=== PATIENT | male | born 1975 | race Caucasian/White ===

== ENCOUNTER → 2023-08-25 | Emergency (ER) | payer OTHER ==
[~2023-08-25] MED LIST: ONDANSETRON 4 MG/2 ML VIAL ONE
[2023-08-25 12:46] LABS: Absolute Lymphocytes (CBC) 2.4 K/uL (0.7-4.9); Hematocrit 46.3 % (39.6-49.0); Lymphocytes % 25.9 % (15.3-44.8); MCV 88.4 fL (80-100); Platelets 268 thou/uL (152-406); RBC Red Blood Cell Count 5.24 M/uL (4.33-5.43)
[2023-08-25 13:03] LABS: Albumin 3.6 g/dL (3.4-5.0); Bilirubin Total 0.3 mg/dL (0.2-1.0); Potassium 4.3 mEq/L (3.5-5.1); Protein, Total 7.3 g/dL (6.4-8.2)
[2023-08-25 13:16] LABS: Specific Gravity 1.024 (1.005-1.030); Urine Bacteria None Seen /HPF (<20); Urine Bilirubin NEGATIVE (Negative); Urine Blood 2+ (Negative); Urine Clarity Turbid (Clear); Urine Color Yellow (Yellow); Urine Glucose NEGATIVE (Negative); Urine Mucus Slight /HPF (None Seen); Urine Protein TRACE (Negative); Urine RBC >50 /HPF (None Seen); Urine Urobilinogen Normal (Normal)
--- NOTE | 2023-08-25 13:57 | RAD REPORT ---
EXAM DESCRIPTION: CT - Abdomen Pelvis W Contrast - 08/25/2023 1:48 pm CLINICAL HISTORY: Abdominal pain COMPARISON: none. TECHNIQUE: Computed axial tomography of the abdomen pelvis was obtained. 100 cc Isovue-300 was admin istered intravenously. Oral contrast was not requested which limits evaluation of bowel and appendix All CT scans are performed using dose optimization technique as appropriate and may include automated exposure control or mA/KV adjustment according to patient size. FINDINGS: Fatty liver. Cholelithiasis. Gallbladder wall is not thickened. Spleen, pancreas, adrenals and right kidney are unremarkable 16 millimeter calculus left renal pelvis with mild left hydronephrosis. Normal appendix. No evidence of diverticulitis Small umbilical hernia IMPRESSION: 16 millimeter calculus left renal pelvis with mild left hydronephrosis. Cholelithiasis without evidence of cholecystitis
--- NOTE | 2023-08-25 14:16 | ER ---
Nurse's Notes [facility] Name: Audelia Olivier Age: 48 yrs Sex: Male : 1975 Arrival Date: 08/25/2023 Time: 11:52 Bed 19 Private MD: Diagnosis: Kidney stone, flank pain Presentation: 08/25 12:13 Chief complaint: Intermittent left sided abdominal pain x 2-3 months. Denies hb N/V/D/urinary symptoms. Coronavirus screen: At this time, the client does not indicate any symptoms associated with coronavirus-19. Ebola Screen: No symptoms or risks identified at this time. Initial Sepsis Screen: Does the patient meet any 2 criteria? No. Patient's initial sepsis screen is negative. Does the patient have a suspected source of infection? No. Patient's initial sepsis screen is negative. Risk Assessment: Do you want to hurt yourself or someone else? Patient reports no desire to harm self or others. Onset of symptoms was May 2023. 12:13 Method Of Arrival: Ambulatory hb 12:13 Acuity: KYLE 3 hb Historical: - Allergies: 12:15 No Known Allergies; hb - Home Meds: 12:15 None [Active]; hb - PMHx: 12:15 None; hb - PSHx: 12:15 None; hb - Immunization history:: Adult Immunizations up to date. - Social history:: Smoking status: Patient reports the use of cigarette tobacco products. Screenin:55 [facility] ED Fall Risk Assessment (Adult) History of falling in the last 3 months, db including since admission No falls in past 3 months (0 pts) Confusion or Disorientation No (0 pts) Intoxicated or Sedated No (0 pts) Impaired Gait No (0 pts) Mobility Assist Device Used No (0 pt) Altered Elimination No (0 pt) Score/Fall Risk Level 0 - 2 = Low Risk Oriented to surroundings, Maintained a safe environment. Abuse screen: Denies threats or abuse. Denies injuries from another. Nutritional screening: No deficits noted. Tuberculosis screening: No symptoms or risk factors identified. Assessment: 13:55 Reassessment: Patient appears in no apparent distress at this time. Patient and/or db family updated on plan of care and expected duration. Pain level reassessed. Patient is alert, oriented x 3, equal unlabored respirations, skin warm/dry/pink. General: Appears in no apparent distress. comfortable, Behavior is calm, cooperative. Pain: Complains of pain in back. Neuro: Level of Consciousness is awake, alert, obeys commands, Oriented to person, place, time, situation. Respiratory: Airway is patent Respiratory effort is even, unlabored, Respiratory pattern is regular, symmetrical. Vital Signs: 12:13 BP 146 / 103; Pulse 69; Resp 16; Temp 98.4(O); Pulse Ox 100% on R/A; Weight 84.37 kg; hb Height 5 ft. 6 in. ; Pain 6/10; 14:18 BP 153 / 99 LA; Pulse 68; Resp 12 S; Temp 98(O); Pulse Ox 100% on R/A; jg11 12:13 Body Mass Index 30.02 (84.37 kg, 167.64 cm) hb 12:13 Pain Scale: Adult hb ED Course: 12:00 Patient arrived in ED. mg5 12:09 Ashlie Bills MD is Attending Physician. sp3 12:15 Triage completed. hb 12:15 Arm band placed on. hb 12:42 Initial lab(s) drawn, by me, sent to lab. Inserted saline lock: 22 gauge in right jg11 antecubital area, using aseptic technique. Blood collected. 12:57 Carmen Dias, RN is Primary Nurse. db 13:50 CT Abd/Pelvis - IV Contrast Only In Process Unspecified. EDMS 13:55 Patient has correct armband on for positive identification. Bed in low position. Call db light in reach. Side rails up X 1. Provided Education on: DISCHARGE. Pulse ox on. NIBP on. Warm blanket given. 13:55 No provider procedures requiring assistance completed. db 14:15 Tom Lee MD is Referral Physician. sp3 14:32 IV discontinued, intact, bleeding controlled, No redness/swelling at site. Pressure db dressing applied. Administered Medications: No medications were administered Medication: 13:55 VIS not applicable for this client. db Outcome: 14:15 Discharge ordered by . sp3 14:32 Discharged to home ambulatory, with family, db 14:32 Condition: stable 14:32 Discharge instructions given to patient, family, Instructed on discharge instructions, follow up and referral plans. Prescriptions given X 1, 14:32 Patient left the ED. db Signatures: Dispatcher [employer] Tayla Connell RN RN Ashlie Reyez MD MD sp3 Carmen Dias RN RN db Dorene Alcantara mg5 Luis Ernst jg11
--- NOTE | 2023-08-25 14:16 | EDPHYS ---
Physician Documentation [facility] Name: Audelia Olivier Age: 48 yrs Sex: Male : 1975 Arrival Date: 08/25/2023 Time: 11:52 Bed 19 Private MD: ED Physician Ashlie Bills HPI: 08/25 12:53 This 48 yrs old Male presents to ER via Ambulatory with complaints of Abdominal Pain. sp3 12:55 48-year-old male with no past medical history presents with left lower quadrant sp3 abdominal pain off and on for 1 month. Occasional diarrhea reported. He denies any vomiting, chest pain, shortness of breath, fever, melena, rash, other bleeding, or any other signs or symptoms on ROS at this time. Pain is reported as cramping in nature with a maximum of 6 out of 10.. Historical: - Allergies: 12:15 No Known Allergies; hb - Home Meds: 12:15 None [Active]; hb - PMHx: 12:15 None; hb - PSHx: 12:15 None; hb - Immunization history:: Adult Immunizations up to date. - Social history:: Smoking status: Patient reports the use of cigarette tobacco products. ROS: 12:56 Constitutional: Negative for fever, chills, and weight loss, Eyes: Negative for injury, sp3 pain, redness, and discharge, ENT: Negative for injury, pain, and discharge, Neck: Negative for injury, pain, and swelling, Cardiovascular: Negative for chest pain, palpitations, and edema, Respiratory: Negative for shortness of breath, cough, wheezing, and pleuritic chest pain, Back: Negative for injury and pain, MS/Extremity: Negative for injury and deformity, Skin: Negative for injury, rash, and discoloration, Neuro: Negative for headache, weakness, numbness, tingling, and seizure, Psych: Negative for depression, anxiety, suicide ideation, homicidal ideation, and hallucinations, Allergy/Immunology: Negative for hives, rash, and allergies, Endocrine: Negative for neck swelling, polydipsia, polyuria, polyphagia, and marked weight changes, 12:56 All other systems are negative, Exam: 12:56 Constitutional: This is a well developed, well nourished patient who is awake, alert, sp3 and in no acute distress. Head/Face: Normocephalic, atraumatic. Eyes: Pupils equal round and reactive to light, extra-ocular motions intact. Lids and lashes normal. Conjunctiva and sclera are non-icteric and not injected. Cornea within normal limits. Periorbital areas with no swelling, redness, or edema. ENT: Nares patent. No nasal discharge, no septal abnormalities noted. External auditory canals are clear. Oropharynx with no redness, swelling, or masses, exudates, or evidence of obstruction, uvula midline. Mucous membranes moist. Neck: Trachea midline, no thyromegaly or masses palpated, and no cervical lymphadenopathy. Supple, full range of motion without nuchal rigidity, or vertebral point tenderness. No Meningismus. Chest/axilla: Normal chest wall appearance and motion. Nontender with no deformity. No lesions are appreciated. Cardiovascular: Regular rate and rhythm with a normal S1 and S2. No gallops, murmurs, or rubs. Normal PMI, no JVD. No pulse deficits. Respiratory: Lungs have equal breath sounds bilaterally, clear to auscultation and percussion. No rales, rhonchi or wheezes noted. No increased work of breathing, no retractions or nasal flaring. Back: No spinal tenderness. No costovertebral tenderness. Full range of motion. Skin: Warm, dry with normal turgor. Normal color with no rashes, no lesions, and no evidence of cellulitis. MS/ Extremity: Pulses equal, no cyanosis. Neurovascular intact. Full, normal range of motion. Neuro: Awake and alert, GCS 15, oriented to person, place, time, and situation. Cranial nerves II-XII grossly intact. Motor strength 5/5 in all extremities. Sensory grossly intact. Cerebellar exam normal. Normal gait. Psych: Awake, alert, with orientation to person, place and time. Behavior, mood, and affect are within normal limits. 12:56 Abdomen/GI: Mild pain left lower quadrant without rebound or guarding. No peritoneal signs noted., Vital Signs: 12:13 BP 146 / 103; Pulse 69; Resp 16; Temp 98.4(O); Pulse Ox 100% on R/A; Weight 84.37 kg; hb Height 5 ft. 6 in. ; Pain 6/10; 14:18 BP 153 / 99 LA; Pulse 68; Resp 12 S; Temp 98(O); Pulse Ox 100% on R/A; jg11 12:13 Body Mass Index 30.02 (84.37 kg, 167.64 cm) hb 12:13 Pain Scale: Adult hb MDM: 12:28 Patient medically screened. sp3 12:57 Data reviewed: vital signs, nurses notes, lab test result(s), radiologic studies. ED sp3 course: 48-year-old male with left lower quadrant abdominal pain for 1 month. Differential diagnosis is broad and includes diverticulitis, functional abdominal pain, constipation, other abdominal pathology, kidney stone/ureterolithiasis, UTI/pyelonephritis spectrum, among others. Workup will include CT scan of the abdomen pelvis, laboratory values and urinalysis. Disposition pending workup and patient course.. 14:13 ED course: 1.6 cm kidney stone in the left renal pelvis with mild hydro-. Creatinine is sp3 normal and the remainder of lab values are normal. UA demonstrates no infection. We will discharge patient home on diclofenac and referral to urology. I have stressed the verge of importance of referral and patient to return here for any worsening symptoms.. 08/25 12:28 Order name: CBC with Diff; Complete Time: 13:30 sp3 08/25 12:28 Order name: CMP; Complete Time: 13:30 sp3 08/25 12:28 Order name: Lipase; Complete Time: 13:30 sp3 08/25 12:28 Order name: Urinalysis w/ reflexes; Complete Time: 13:30 sp3 08/25 12:28 Order name: CT Abd/Pelvis - IV Contrast Only; Complete Time: 14:06 sp3 08/25 12:28 Order name: IV Saline Lock; Complete Time: 13:26 sp3 08/25 12:28 Order name: Labs collected and sent; Complete Time: 13:26 sp3 Administered Medications: No medications were administered Disposition Summary: 08/25/23 14:15 Discharge Ordered Notes: Location: Home sp3 Condition: Stable sp3 Diagnosis - Kidney stone, flank pain sp3 Followup: sp3 - With: Tom Lee MD - When: Upon discharge from the Emergency Department - Reason: Continuance of care Discharge Instructions: - Discharge Summary Sheet sp3 - Kidney Stones sp3 Forms: - Medication Reconciliation Form sp3 - Thank You Letter sp3 - Antibiotic Education sp3 - Prescription Opioid Use sp3 - Patient Portal Instructions sp3 - Leadership Thank You Letter sp3 Prescriptions: - Diclofenac Sodium 75 mg Oral Tablet Sustained Release - take 1 tablet ORAL route 2 times per day; 30 tablet; Refills: 0, Product sp3 Selection Permitted Signatures: Dispatcher [employer] Tayla Connell, Ashlie Gross RN, MD MD sp3
[2023-08-25 15:18] VITALS: BP 153/99; TEMP 98; O2SAT 100
== END ==
LOC: ER 11:52
DX: N20.0 Calculus of kidney (principal); Z72.0 Tobacco use
CPT/HCPCS: 85025; 81001; 36415; 83690; 80053; 74177; Q9967; J2405